=== PATIENT | female | born 1985 | race American Indian/Alaskan Native ===

== ENCOUNTER 2016-10-06 21:20 | Emergency (ER) | payer SELFPAY ==
[2016-10-06 22:58] LABS: Bilirubin,Urine NEG (Negative); Blood,Urine NEG (Negative); Ketones,Urine NEG (Negative); Leukocyte Esterase,Urine NEG (Negative); Mucus,Urine FEW /HPF; Nitrite,Urine NEG (Negative); Protein,Urine <15 mg/dL mg/dL (Negative); Urobilinogen,Urine < 2.0 mg/dL (<2.0)
[2016-10-06] MEDS ORDERED: NACL 0.9% 1000 ML 1,000 ML IV ONE (23:01)
--- NOTE | 2016-10-06 23:01 | Emergency Department Report ---
ED Female HPI - General Chief complaint: Urogenital-Female Stated complaint: BACK PAIN/L SHOULDER PAIN Time Seen by Provider: 10/06/16 22:57 Source: patient Mode of arrival: Ambulatory Limitations: No Limitations - History of Present Illness Initial comments: 31-year-old female past medical history obesity, smoker presents with complaint of several weeks of polyuria and polydipsia. Patient states she feels more thirsty than usual and has been urinating with greater frequency. The triage note is incorrect patient is not having back or left shoulder pain is primarily here for increased urinary frequency and polyuria diphtheria. Patient also states she has noticed some whitish vaginal discharge. Last menstrual period was 09/09/2016. Patient denies chest pain shortness of breath palpitations fever or chills nausea or vomiting. Does not have a history of diabetes but diabetes runs in her family. States she is having some external vaginal irritation. Onset/Timin -: month(s) Location: labia Severity: mild Improves with: none Are you Now?: No Associated Symptoms: denies other symptoms - Related Data Sexually active: No Previous Rx's Medication Instructions Recorded Last Taken Type Clotrimazole [Vsln-Fcancesx-2] 45 gm VG QHS #1 cream.appl 10/07/16 Unknown Rx Allergies Allergy/AdvReac Type Severity Reaction Status Date / Time No Known Allergies Allergy Verified 04/11/13 09:25 ED Review of Systems ROS: Stated complaint: BACK PAIN/L SHOULDER PAIN Other details as noted in HPI Constitutional: denies: chills, fever Eyes: denies: eye pain, eye discharge, vision change ENT: denies: ear pain, throat pain Respiratory: denies: cough, shortness of breath, wheezing Cardiovascular: denies: chest pain, palpitations Endocrine: no symptoms reported, increased thirst Gastrointestinal: denies: abdominal pain, nausea, diarrhea Genitourinary: frequency. denies: urgency, dysuria, discharge Musculoskeletal: denies: back pain, joint swelling, arthralgia Skin: denies: rash, lesions Neurological: denies: headache, weakness, paresthesias Psychiatric: denies: anxiety, depression Hematological/Lymphatic: denies: easy bleeding, easy bruising ED Past Medical Hx - Past Medical History Previous Medical History?: Yes Additional medical history: bronchitis - Surgical History Past Surgical History?: No - Social History Smoking Status: Current Every Day Smoker - Medications Home Medications: Home Medications Medication Instructions Recorded Confirmed Last Taken Type Clotrimazole [Hgiq-Owzduuxo-8] 45 gm VG QHS #1 cream.appl 10/07/16 Unknown Rx ED Physical Exam - General Limitations: No Limitations General appearance: alert, in no apparent distress - Head Head exam: Present: atraumatic, normocephalic - Eye Eye exam: Present: normal appearance, PERRL, EOMI - ENT ENT exam: Present: mucous membranes moist - Neck Neck exam: Present: normal inspection - Respiratory Respiratory exam: Present: normal lung sounds bilaterally. Absent: respiratory distress - Cardiovascular Cardiovascular Exam: Present: regular rate, normal rhythm. Absent: systolic murmur, diastolic murmur, rubs, gallop - GI/Abdominal GI/Abdominal exam: Present: soft, normal bowel sounds - External exam: Present: normal external exam Speculum exam: Present: vaginal discharge (white vaginal discharge consistent with yeast infection) Bi-manual exam: Present: normal bi-manual exam (no cervical motion tenderness no adnexal tenderness) - Extremities Exam Extremities exam: Present: normal inspection - Back Exam Back exam: Present: normal inspection, full ROM - Neurological Exam Neurological exam: Present: alert, oriented X3, CN II-XII intact - Psychiatric Psychiatric exam: Present: normal affect, normal mood - Skin Skin exam: Present: warm, dry, intact, normal color. Absent: rash ED Course Vital Signs 10/06/16 10/07/16 21:27 02:27 Temperature 98.7 F 98.0 F Pulse Rate 87 75 Respiratory 18 18 Rate Blood Pressure 133/88 Blood Pressure 122/87 [Right] O2 Sat by Pulse 97 97 Oximetry ED Medical Decision Making - Lab Data Result diagrams: 10/06/16 23:13 10/06/16 23:13 - Medical Decision Making A/P: Polydipsia, polyuria, hyperglycemia 1-patient has elevated glucose and glucose urea consistent with possible new onset diabetes 2-no significant anion gap on BMP, case discussed with 3-I will treat the patient empirically for possible vaginal candidiasis, patient has otherwise unremarkable pelvic exam 4-I referred patient to primary care and advised her to follow-up as she needs a follow-up for hyperglycemia and primary care treatment plan for possible diabetes Critical care attestation.: If time is entered above; I have spent that time in minutes in the direct care of this critically ill patient, excluding procedure time. ED Disposition Clinical Impression: Hyperglycemia, Glucosuria, Vaginal irritation Disposition: - TO HOME OR SELFCARE Is pt being admited?: No Does the pt Need Aspirin: No Condition: Stable Instructions: Diabetes Mellitus Type 2 in Adults (ED), Hyperglycemia, Non- Diabetic (ED), Diabetic Hyperglycemia (ED) Prescriptions: Clotrimazole [Cisc-Gleayilk-2] 45 gm VG QHS #1 cream.appl Referrals: PRIMARY CARE, [Primary Care Provider] - 3-5 Days MATT FLOWERS MD [Staff Physician] - 3-5 Days [facility] [Provider Group] - 3-5 Days [facility] [Provider Group] - 3-5 Days [facility] [Provider Group] - 3-5 Days Forms: Accompanied Note, Work/School Release Form(ED) Time of Disposition: 02:00
[2016-10-06 23:42] LABS: Basophils % (Auto) 0.9 % (0.0-1.8); Eosinophils % (Auto) 1.9 % (0.0-4.3); Hematocrit 40.6 % (30.3-42.9); Hemoglobin 13.1 gm/dl (10.1-14.3); Mean Corpuscular HGB Conc 32 % (30-34); Mean Corpuscular Hemoglobin 28 pg (28-32); Mean Corpuscular Volume 87 fl (79-97); Platelet Count 218 K/mm3 (140-440); Red Blood Count 4.66 M/mm3 (3.65-5.03); Red Cell Distribution Width 13.3 % (13.2-15.2); White Blood Count 12.6 K/mm3 (4.5-11.0)
[2016-10-07 01:29] LABS: Anion Gap 19 mmol/L; Blood Urea Nitrogen 15 mg/dL (7-17); Calcium 9.3 mg/dL (8.4-10.2); Carbon Dioxide 22 mmol/L (22-30); Glucose 280 mg/dL (65-100); Potassium 3.9 mmol/L (3.6-5.0); Sodium 137 mmol/L (137-145)
[2016-10-07] MEDS ORDERED: NACL 0.9% 1000 ML 1,000 ML IV ONE (01:36)
[2016-10-07 02:28] VITALS: BP 122/87
== END 2016-10-07 02:27 | disposition home or self-care (01) ==
LOC: ED 21:20
DX: R73.9 Hyperglycemia, unspecified (principal); N89.8 Other specified noninflammatory disorders of vagina; R81 Glycosuria; F17.200 Nicotine dependence, unspecified, uncomplicated
CPT/HCPCS: 36415; 80048; 81001; 81025; 82805; 82962; 85025; 87210; 87591; 96360; 96361; 99284; J7030

== ENCOUNTER 2016-11-17 12:21 | Emergency (ER) | payer SELFPAY | END 2016-11-17 14:11 | disposition left against medical advice (07) | LOC: ED 12:21 | DX: R42 Dizziness and giddiness (principal); Z53.21 Procedure and treatment not carried out due to patient leaving prior to being seen by health care provider ==

== ENCOUNTER 2018-10-04 17:56 | Emergency (ER) | payer SELFPAY ==
[2018-10-04 18:05] VITALS: BP 135/91
--- NOTE | 2018-10-04 18:25 | Event Note ---
ED Screening Note Date of service: 10/04/18 Time: 18:22 ED Screening Note: 33 y/o female comes in for chest pain and left eye and face swelling. PMH DM and bronchitis BS 87. LMP 09/29/18 This initial assessment/diagnostic orders/clinical plan/treatment(s) is/are subject to change based on patients health status, clinical progression and re- assessment by fellow clinical providers in the ED. Further treatment and workup at subsequent clinical providers discretion. Patient/guardian urged not to elope from the ED as their condition may be serious if not clinically assessed and managed. Initial orders include:
--- NOTE | 2018-10-04 19:12 | XRay Report ---
CHEST 2 VIEWS INDICATION / CLINICAL INFORMATION: chest tightness. COMPARISON: None available. FINDINGS: SUPPORT DEVICES: None. HEART / MEDIASTINUM: No significant abnormality. LUNGS / PLEURA: No significant pulmonary or pleural abnormality. No pneumothorax. ADDITIONAL FINDINGS: No significant additional findings. IMPRESSION: 1. No acute findings. Signer Name: Rusty Diaz MD Signed: 10/04/2018 7:07 PM Workstation Name: [id number]
[2018-10-04] MEDS ORDERED: TORADOL IM ONE (20:22)
[2018-10-04] MEDS ORDERED: VISTARIL PO ONE (20:22)
[2018-10-04] MEDS ORDERED: SOLU-Medrol IM ONE (20:22)
--- NOTE | 2018-10-04 21:11 | Emergency Department Report ---
ED General Adult HPI - General Chief complaint: Chest Pain Stated complaint: CHEST PAIN/BLURY VISION Time Seen by Provider: 10/04/18 18:22 Source: patient Mode of arrival: Ambulatory Limitations: No Limitations - History of Present Illness Initial comments: Patient is a 33-year-old -[place] female with no past medical history presents today due to complaint of acute onset persistent headache and left facial pain and palsy on the left for the last 12 hours. Patient also complains of diffuse chest tightness. Patient states that she noticed that the left side of her face was deformed whenever she smiled. Patient denies fever, chills, nausea, vomiting, shortness of breath, sore throat, change in mentation, abdominal pain, cough or diarrhea, dizziness, change in vision or eye problems or extremity weakness. MD Complaint: left facial pain and deformity; headache, chest wall tightness -: Sudden, hour(s) (12) Location: face, chest Radiation: non-radiation Severity scale (0 -10): 8 Quality: aching, sharp Consistency: constant Improves with: none Worsens with: none Associated Symptoms: denies other symptoms, chest pain, headaches, loss of appetite, malaise. denies: confusion, cough, diaphoresis, fever/chills, nausea/vomiting, rash, seizure, shortness of breath, syncope, weakness Treatments Prior to Arrival: none - Related Data Previous Rx's Medication Instructions Recorded Last Taken Type Sulfamethoxazole/Trimethoprim 1 each PO BID #10 tablet 01/02/17 Unknown Rx [Bactrim DS TAB] Acyclovir [Zovirax Tab] 400 mg PO Q8H #30 tab 10/04/18 Unknown Rx Butalb/Acetamin/Caff 50-325-40 1 tab PO Q6HR PRN #15 tab 10/04/18 Unknown Rx [Fioricet 50-325-40] Ketorolac [Toradol] 10 mg PO Q8H PRN #20 tablet 10/04/18 Unknown Rx Prednisone [predniSONE 10 mg 10 mg PO .TAPER #21 tab.ds.pk 10/04/18 Unknown Rx (6-Day Pack, 21 Tabs)] Allergies Allergy/AdvReac Type Severity Reaction Status Date / Time No Known Allergies Allergy Verified 01/02/17 11:12 ED Review of Systems ROS: Stated complaint: CHEST PAIN/BLURY VISION Other details as noted in HPI Comment: All other systems reviewed and negative Constitutional: denies: chills, fever Eyes: denies: eye pain, eye discharge, vision change ENT: other (left facial palsy with mild deformity and pain). denies: ear pain, throat pain Respiratory: no symptoms reported. denies: cough, shortness of breath, SOB with exertion, SOB at rest, wheezing Cardiovascular: chest pain (tightness). denies: palpitations, dyspnea on exertion, edema, syncope, paroxysmal nocturnal dyspnea Endocrine: no symptoms reported. denies: excessive sweating, flushing, intolerance to heat, increased hunger, increased thirst, increased urine Gastrointestinal: denies: abdominal pain, nausea, vomiting, diarrhea Genitourinary: denies: urgency, dysuria, discharge Musculoskeletal: denies: back pain, joint swelling, arthralgia Skin: denies: rash, lesions Neurological: headache. denies: weakness, paresthesias Psychiatric: anxiety. denies: depression Hematological/Lymphatic: denies: easy bleeding, easy bruising ED Past Medical Hx - Past Medical History Previous Medical History?: Yes Hx Diabetes: Yes Additional medical history: bronchitis - Surgical History Past Surgical History?: No - Social History Smoking Status: Never Smoker Substance Use Type: None - Medications Home Medications: Home Medications Medication Instructions Recorded Confirmed Last Taken Type Sulfamethoxazole/Trimethoprim 1 each PO BID #10 tablet 01/02/17 Unknown Rx [Bactrim DS TAB] Acyclovir [Zovirax Tab] 400 mg PO Q8H #30 tab 10/04/18 Unknown Rx Butalb/Acetamin/Caff 50-325-40 1 tab PO Q6HR PRN #15 tab 10/04/18 Unknown Rx [Fioricet 50-325-40] Ketorolac [Toradol] 10 mg PO Q8H PRN #20 tablet 10/04/18 Unknown Rx Prednisone [predniSONE 10 mg 10 mg PO .TAPER #21 tab.ds.pk 10/04/18 Unknown Rx (6-Day Pack, 21 Tabs)] ED Physical Exam - General Limitations: No Limitations General appearance: alert, in no apparent distress - Head Head exam: Present: atraumatic, normocephalic, normal inspection - Eye Eye exam: Present: normal appearance, PERRL, EOMI. Absent: scleral icterus, conjunctival injection, nystagmus, periorbital swelling, periorbital tenderness Pupils: Present: normal accommodation - ENT ENT exam: Present: normal exam, normal orophraynx, mucous membranes moist, TM's normal bilaterally, normal external ear exam, other (gross left facial droop and palsy) - Neck Neck exam: Present: normal inspection, full ROM. Absent: tenderness - Respiratory Respiratory exam: Present: normal lung sounds bilaterally. Absent: respiratory distress, wheezes, rales, rhonchi, chest wall tenderness, accessory muscle use, decreased breath sounds - Cardiovascular Cardiovascular Exam: Present: regular rate, normal rhythm, normal heart sounds. Absent: systolic murmur, diastolic murmur, rubs, gallop - GI/Abdominal GI/Abdominal exam: Present: soft, normal bowel sounds. Absent: tenderness, guarding, hyperactive bowel sounds, hypoactive bowel sounds - Rectal Rectal exam: Present: deferred - Extremities Exam Extremities exam: Present: normal inspection, full ROM, normal capillary refill - Back Exam Back exam: Present: normal inspection, full ROM. Absent: CVA tenderness (L), muscle spasm, paraspinal tenderness - Neurological Exam Neurological exam: Present: alert, oriented X3, CN II-XII intact, normal gait, reflexes normal, other (gross left facial droop with palsy) - Psychiatric Psychiatric exam: Present: normal affect, normal mood, anxious - Skin Skin exam: Present: warm, dry, intact, normal color. Absent: rash ED Course Vital Signs 10/04/18 10/04/18 18:02 18:19 Temperature 98.3 F 98.3 F Pulse Rate 73 73 Respiratory 18 18 Rate Blood Pressure 135/91 Blood Pressure 135/91 [Right] O2 Sat by Pulse 99 99 Oximetry - Reevaluation(s) Reevaluation #1: 10/04/18 21:17 This is a 33-year-old female who presented to the ED with left facial pain with pleurisy, headache and chest tightness. In the ED, patient is alert and oriented 3 and is not in distress with normal vital signs. Patient was treated in the ED with pain medication and also given steroid injection. Chest x-ray shows no acute cardiopulmonary abnormalities. Patient was discharged home on medications and advised to follow up with her primary care physician in 5-7 days for reevaluation or return to the ED immediately if symptoms get worse. 10/04/18 21:22 ED Medical Decision Making - Radiology Data Radiology results: report reviewed, image reviewed Chest x-ray shows no acute cardiopulmonary abnormalities - Medical Decision Making This is a 33-year-old female who presented to the ED with left facial pain with pleurisy, headache and chest tightness. In the ED, patient is alert and oriented 3 and is not in distress with normal vital signs. Patient was treated in the ED with pain medication and also given steroid injection. Patient was discharged home on medications and advised to follow up with her primary care physician in 5-7 days for reevaluation or return to the ED immediately if symptoms get worse. - Differential Diagnosis Guy's palsy, cluster headache, anxiety Critical care attestation.: If time is entered above; I have spent that time in minutes in the direct care of this critically ill patient, excluding procedure time. ED Disposition Clinical Impression: Guy's palsy, Anxiety as acute reaction to gross stress Cluster headache Qualifiers: Headache chronicity pattern: episodic headache Intractability: not intractable Qualified Code(s): G44.019 - Episodic cluster headache, not intractable Disposition: DC-01 TO HOME OR SELFCARE Is pt being admited?: No Does the pt Need Aspirin: No Condition: Stable Instructions: Guy Palsy (ED), Acute Headache (ED) Additional Instructions: Take medications with food, drink plenty of fluids and follow-up with your Primary Care Physician in 5-7 days for reevaluation. Return to the ED immediately if symptoms get worse. Prescriptions: Butalb/Acetamin/Caff 50-325-40 [Fioricet 50-325-40] 1 tab PO Q6HR PRN #15 tab PRN Reason: Headache Prednisone [predniSONE 10 mg (6-Day Pack, 21 Tabs)] 10 mg PO .TAPER #21 tab.ds.pk Ketorolac [Toradol] 10 mg PO Q8H PRN #20 tablet PRN Reason: Pain Acyclovir [Zovirax Tab] 400 mg PO Q8H #30 tab Referrals: [facility] [Outside] - 3-5 Days Time of Disposition: 21:09 Print Language: LUXEMBOURGER
== END 2018-10-04 21:24 | disposition home or self-care (01) ==
LOC: ED 17:56
DX: G51.0 Bell's palsy (principal); F41.9 Anxiety disorder, unspecified; G44.009 Cluster headache syndrome, unspecified, not intractable; E11.9 Type 2 diabetes mellitus without complications; Z79.899 Other long term (current) drug therapy
CPT/HCPCS: 71046; 82962; 93005; 93010; 96372; 99283; J1885; J2930; Q0177

== ENCOUNTER 2019-10-17 16:19 | Emergency (ER) | payer MEDICAID ==
[2019-10-17 16:39] VITALS: BP 137/87
[2019-10-17] MEDS ORDERED: dexAMETHasone 20 MG/5 ML VIAL ONE (18:00)
[2019-10-17] MEDS ORDERED: dexAMETHasone 20 MG/5 ML VIAL IM ONE (18:23)
--- NOTE | 2019-10-17 18:27 | Event Note ---
ED Screening Note Date of service: 10/17/19 Time: 18:25 ED Screening Note: Patient complains of sore throat and difficulty swallowing x1 week Worsening and states she can only swallow her saliva History of diabetes Muffled voice on exam with trismus noted; significant erythema noted in the post erior pharynx This initial assessment/diagnostic orders/clinical plan/treatment(s) is/are subject to change based on patients health status, clinical progression and re- assessment by fellow clinical providers in the ED. Further treatment and workup at subsequent clinical providers discretion. Patient/guardian urged not to elope from the ED as their condition may be serious if not clinically assessed and managed. Initial orders include: Labs CT neck soft tissue Decadron IM given for pain and swelling
[2019-10-17 19:32] LABS: Basophils # (Auto) 0.1 K/mm3 (0.0-0.1); Basophils % (Auto) 0.5 % (0.0-1.8); Eosinophils # (Auto) 0.1 K/mm3 (0.0-0.4); Eosinophils % (Auto) 0.8 % (0.0-4.3); Hemoglobin 12.2 gm/dl (10.1-14.3); Lymphocytes % (Auto) 17.1 % (13.4-35.0); Mean Corpuscular HGB Conc 32 % (30-34); Mean Corpuscular Volume 86 fl (79-97); Monocytes % (Auto) 5.7 % (0.0-7.3); Platelet Count 278 K/mm3 (140-440); Red Blood Count 4.43 M/mm3 (3.65-5.03)
[2019-10-17 19:49] LABS: Alanine Aminotransferase 16 units/L (7-56); Albumin 3.9 g/dL (3.9-5); Blood Urea Nitrogen 14 mg/dL (7-17); Calcium 9.6 mg/dL (8.4-10.2); Hemolysis Index 1
[2019-10-17] MEDS ORDERED: SODIUM CHLORIDE 0.9% 1000 ML 1,000 ML IV ONE (19:55)
[2019-10-17] MEDS ORDERED: MORPHINE 2 MG/1 ML INJ IV ONE (19:55)
[2019-10-17] MEDS ORDERED: CLINDAMYCIN 600 MG/50 mL 600 MG/50 ML BAG IV ONE (19:55)
[2019-10-17 19:56] LABS: BUN/Creatinine Ratio 20
--- NOTE | 2019-10-17 20:33 | Emergency Department Report ---
ED ENT HPI - General Chief complaint: Sore Throat Stated complaint: SORE THROAT/SOB Time Seen by Provider: 10/17/19 18:20 Source: patient Mode of arrival: Ambulatory Limitations: No Limitations - History of Present Illness Initial comments: This is a 34-year-old female nontoxic, well nourished in appearance, no acute signs of distress presents to the ED with c/o of sore throat x several days. Patient describes sore throat as swallowing razer blades. Patient denies any fever, chills, headache, stiff neck, nausea, vomiting, chest pain, shortness of breath, numbness or tingling. Patient denies any drooling but has some muffled voice. Patient is able to tolerate saliva. Patient denies any allergies or significant past medical history. MD complaint: sore throat -: days(s) Location: throat Severity: mild Severity scale (0 -10): 8 Quality: aching Consistency: constant Improves with: none Worsens with: swallowing Associated Symptoms: pain with swallowing, sore throat. denies: fever, cough, gum swelling, toothache, tinnitus, hearing loss, discharge from ear, rhinorrhea - Related Data Previous Rx's Medication Instructions Recorded Last Taken Type Sulfamethoxazole/Trimethoprim 1 each PO BID #10 tablet 01/02/17 Unknown Rx [Bactrim DS TAB] Acyclovir [Zovirax Tab] 400 mg PO Q8H #30 tab 10/04/18 Unknown Rx Butalb/Acetamin/Caff 50-325-40 1 tab PO Q6HR PRN #15 tab 10/04/18 Unknown Rx [Fioricet 50-325-40] Ketorolac [Toradol] 10 mg PO Q8H PRN #20 tablet 10/04/18 Unknown Rx Prednisone [predniSONE 10 mg 10 mg PO .TAPER #21 tab.ds.pk 10/04/18 Unknown Rx (6-Day Pack, 21 Tabs)] Acetaminophen/Codeine [Tylenol 1 tab PO Q6H PRN #12 tab 10/17/19 Unknown Rx /Codeine # 3 tab] Clindamycin [Clindamycin CAP] 300 mg PO Q6H #28 capsule 10/17/19 Unknown Rx Nystas/Diphen/Xyl Visc/Mylanta 15 ml MM Q4H PRN 5 Days ml 08/18/20 Unknown Rx [Magic Mouthwash] Allergies Allergy/AdvReac Type Severity Reaction Status Date / Time No Known Allergies Allergy Verified 01/02/17 11:12 ED Dental HPI - General Chief complaint: Sore Throat Stated complaint: SORE THROAT/SOB Time Seen by Provider: 10/17/19 18:20 Source: patient Mode of arrival: Ambulatory Limitations: No Limitations - Related Data Previous Rx's Medication Instructions Recorded Last Taken Type Sulfamethoxazole/Trimethoprim 1 each PO BID #10 tablet 01/02/17 Unknown Rx [Bactrim DS TAB] Acyclovir [Zovirax Tab] 400 mg PO Q8H #30 tab 10/04/18 Unknown Rx Butalb/Acetamin/Caff 50-325-40 1 tab PO Q6HR PRN #15 tab 10/04/18 Unknown Rx [Fioricet 50-325-40] Ketorolac [Toradol] 10 mg PO Q8H PRN #20 tablet 10/04/18 Unknown Rx Prednisone [predniSONE 10 mg 10 mg PO .TAPER #21 tab.ds.pk 10/04/18 Unknown Rx (6-Day Pack, 21 Tabs)] Acetaminophen/Codeine [Tylenol 1 tab PO Q6H PRN #12 tab 10/17/19 Unknown Rx /Codeine # 3 tab] Clindamycin [Clindamycin CAP] 300 mg PO Q6H #28 capsule 10/17/19 Unknown Rx Nystas/Diphen/Xyl Visc/Mylanta 15 ml MM Q4H PRN 5 Days ml 10/17/19 Unknown Rx [Magic Mouthwash] Allergies Allergy/AdvReac Type Severity Reaction Status Date / Time No Known Allergies Allergy Verified 01/02/17 11:12 ED Review of Systems ROS: Stated complaint: SORE THROAT/SOB Other details as noted in HPI Constitutional: denies: chills, fever Eyes: denies: eye pain, eye discharge, vision change ENT: throat pain. denies: ear pain Respiratory: denies: cough, shortness of breath, wheezing Cardiovascular: denies: chest pain, palpitations Endocrine: no symptoms reported Gastrointestinal: denies: abdominal pain, nausea, diarrhea Genitourinary: denies: urgency, dysuria, discharge Musculoskeletal: denies: back pain, joint swelling, arthralgia Skin: denies: rash, lesions Neurological: denies: headache, weakness, paresthesias Psychiatric: denies: anxiety, depression Hematological/Lymphatic: denies: easy bleeding, easy bruising ED Past Medical Hx - Past Medical History Hx Diabetes: Yes Additional medical history: bronchitis - Surgical History Past Surgical History?: No - Social History Smoking Status: Never Smoker Substance Use Type: None - Medications Home Medications: Home Medications Medication Instructions Recorded Confirmed Last Taken Type Sulfamethoxazole/Trimethoprim 1 each PO BID #10 tablet 01/02/17 Unknown Rx [Bactrim DS TAB] Acyclovir [Zovirax Tab] 400 mg PO Q8H #30 tab 10/04/18 Unknown Rx Butalb/Acetamin/Caff 50-325-40 1 tab PO Q6HR PRN #15 tab 10/04/18 Unknown Rx [Fioricet 50-325-40] Ketorolac [Toradol] 10 mg PO Q8H PRN #20 tablet 10/04/18 Unknown Rx Prednisone [predniSONE 10 mg 10 mg PO .TAPER #21 tab.ds.pk 10/04/18 Unknown Rx (6-Day Pack, 21 Tabs)] Acetaminophen/Codeine [Tylenol 1 tab PO Q6H PRN #12 tab 10/17/19 Unknown Rx /Codeine # 3 tab] Clindamycin [Clindamycin CAP] 300 mg PO Q6H #28 capsule 10/17/19 Unknown Rx Nystas/Diphen/Xyl Visc/Mylanta 15 ml MM Q4H PRN 5 Days ml 10/17/19 Unknown Rx [Magic Mouthwash] ED Physical Exam - General Limitations: No Limitations General appearance: alert, in no apparent distress - Head Head exam: Present: atraumatic, normocephalic - Eye Eye exam: Present: normal appearance - Expanded ENT Exam Expanded Ear exam: Present: normal external inspection Mouth exam: Present: normal external inspection, muffled voice. Absent: rocio oling, trismus Teeth exam: Present: normal inspection Throat exam: Positive: tonsillar erythema, tonsillomegaly (3+ bilateral), other (Uvula midline). Negative: tonsillar exudate, R peritonsillar mass, L peritonsillar mass - Neck Neck exam: Present: normal inspection, full ROM, lymphadenopathy (Tonsillar). A bsent: tenderness, meningismus - Respiratory Respiratory exam: Present: normal lung sounds bilaterally. Absent: respiratory distress, wheezes, rales, rhonchi, stridor, chest wall tenderness, accessory muscle use, decreased breath sounds, prolonged expiratory - Cardiovascular Cardiovascular Exam: Present: regular rate, normal rhythm, normal heart sounds. Absent: bradycardia, tachycardia, irregular rhythm, systolic murmur, diastolic murmur, rubs, gallop - Extremities Exam Extremities exam: Present: normal inspection, full ROM - Back Exam Back exam: Present: normal inspection, full ROM - Neurological Exam Neurological exam: Present: alert, oriented X3, normal gait - Psychiatric Psychiatric exam: Present: normal affect, normal mood - Skin Skin exam: Present: warm, dry, intact, normal color. Absent: rash ED Course Vital Signs 10/17/19 16:36 Temperature 98.9 F Pulse Rate 85 Respiratory 18 Rate Blood Pressure 137/87 O2 Sat by Pulse 100 Oximetry - Reevaluation(s) Reevaluation #1: 10/17/19 20:33 Patient is speaking in full sentences with no signs of distress noted. ED Medical Decision Making - Lab Data Result diagrams: 10/17/19 18:52 10/17/19 18:52 Lab Results 10/17/19 10/17/19 10/17/19 Range/Units 18:52 18:52 18:52 WBC 17.6 H (4.5-11.0) K/mm3 RBC 4.43 (3.65-5.03) M/mm3 Hgb 12.2 (10.1-14.3) gm/dl Hct 38.0 (30.3-42.9) % MCV 86 (79-97) fl MCH 28 (28-32) pg MCHC 32 (30-34) % RDW 16.0 H (13.2-15.2) % Plt Count 278 (140-440) K/mm3 Lymph % (Auto) 17.1 (13.4-35.0) % [place] % (Auto) 5.7 (0.0-7.3) % Eos % (Auto) 0.8 (0.0-4.3) % Baso % (Auto) 0.5 (0.0-1.8) % Lymph # 3.0 (1.2-5.4) K/mm3 [place] # 1.0 H (0.0-0.8) K/mm3 Eos # 0.1 (0.0-0.4) K/mm3 Baso # 0.1 (0.0-0.1) K/mm3 Seg Neutrophils % 75.9 H (40.0-70.0) % Seg Neutrophils # 13.4 H (1.8-7.7) K/mm3 Sodium 137 (137-145) mmol/L Potassium 3.9 (3.6-5.0) mmol/L Chloride 99.5 (98-107) mmol/L Carbon Dioxide 24 (22-30) mmol/L Anion Gap 17 mmol/L BUN 14 (7-17) mg/dL Creatinine 0.7 (0.6-1.2) mg/dL Estimated GFR > 60 ml/min BUN/Creatinine Ratio 20 % Glucose 105 H (65-100) mg/dL Calcium 9.6 (8.4-10.2) mg/dL Total Bilirubin 0.30 (0.1-1.2) mg/dL AST 18 (5-40) units/L ALT 16 (7-56) units/L Alkaline Phosphatase 78 (35-129) units/L Total Protein 7.7 (6.3-8.2) g/dL Albumin 3.9 (3.9-5) g/dL Albumin/Globulin Ratio 1.0 % HCG, Qual Negative (Negative) - Radiology Data Referring Physician: ABI HERNANDEZ Patient Name: DARCIE LEBLANC Date of : 1985 Sex: Female Report Date: 2019-10-17 Report Status: [place] [address] Cat Scan Report Signed Patient: DARCIE LEBLANC R#: [id number] : 1985 Acct:[id number] Age/Sex: 34 / F ADM Date: 10/17/19 Loc: ED Attending Dr: Ordering Physician: ABI HERNANDEZ Date of Service: 10/17/19 Procedure(s): CT neck w con Accession Number(s): [id number] cc: ABI HERNANDEZ CT NECK WITH CONTRAST HISTORY: Throat pain; trismus COMPARISON: None. TECHNIQUE: Routine CT of the neck is performed following intravenous contrast. All CT scans at this location are performed using CT dose reduction for ALARA by means of automated exposure control CONTRAST: 100 mL Omnipaque 300 FINDINGS: Left faucial tonsil is swollen. No CT findings to suggest tonsillar/peritonsillar abscess. Mild mass effect over the airway and left parapharyngeal space. Skull Base: No significant abnormality. Parotid, Carotid, Retropharyngeal, Prevertebral and Tile Molder Spaces: No abnormal mass, enhancing lesion or other significant abnormality. Airway: Patent Lymphatics: Reactive lymph nodes at level 2 and 3 more on the left side in the left supraclavicular region Vasculature: No significant abnormality. Osseous Structures: No significant abnormality Additional findings: None. IMPRESSION: Enlarged left faucial tonsil; no tonsillar/peritonsillar abscess Mild mass effect over the airway is not compromised Signer Name: Lenin Alejandro MD Signed: 10/17/2019 9:15 PM Workstation Name: [id number] Transcribed By: BS Dictated By: Lenin Cerda MD Electronically Authenticated By: Lenin Cerda MD Signed Date/Time: 10/17/192114 DD/ 10 TD/TT: - Medical Decision Making This is a 34-year-old female that presents with pharyngitis. Patient is stable was examined by me. Patient is notified of the CT results with no questions noted by the patient. No tonsillar abscess noted. Uvula is midline. Patient received Clinda and [place] in the ED. Vital signs are stable. Patient is not febrile and normal heart rate. Patient was instructed to Follow-up with a primary care doctor in 3-5 days or if symptoms worsen and continue return to emergency room as soon as possible. At time of discharge, the patient does not seem toxic or ill in appearance. No acute signs of distress noted. Patient agrees to discharge treatment plan of care. No further questions noted by the patient. - Differential Diagnosis Tonsillar abscess, pharyngitis, strep throat Critical care attestation.: If time is entered above; I have spent that time in minutes in the direct care of this critically ill patient, excluding procedure time. ED Disposition Clinical Impression: Tonsillitis Pharyngitis Qualifiers: Pharyngitis/tonsillitis etiology: unspecified etiology Qualified Code(s): J02.9 - Acute pharyngitis, unspecified Disposition: DC-01 TO HOME OR SELFCARE Is pt being admited?: No Does the pt Need Aspirin: No Condition: Stable Instructions: Pharyngitis (ED) Additional Instructions: Follow-up with a primary care doctor in 3-5 days or if symptoms worsen and continue return to emergency room as soon as possible. Prescriptions: Clindamycin [Clindamycin CAP] 300 mg PO Q6H #28 capsule Nystas/Diphen/Xyl Visc/Mylanta [Magic Mouthwash] 15 ml MM Q4H PRN 5 Days ml PRN Reason: Sore Throat Acetaminophen/Codeine [Tylenol /Codeine # 3 tab] 1 tab PO Q6H PRN #12 tab PRN Reason: Pain , Severe (7-10) Referrals: PRIMARY CAREMD [Primary Care Provider] - 3-5 Days FRANNIE ALEXANDER MD [Staff Physician] - 3-5 Days Forms: Work/School Release Form(ED) Time of Disposition: 21:28
--- NOTE | 2019-10-17 21:20 | Cat Scan Report ---
CT NECK WITH CONTRAST HISTORY: Throat pain; trismus COMPARISON: None. TECHNIQUE: Routine CT of the neck is performed following intravenous contrast. All CT scans at this [facility] [place] are performed using CT dose reduction for ALARA by means of automated exposure control CONTRAST: 100 mL Omnipaque 300 FINDINGS: Left faucial tonsil is swollen. No CT findings to suggest tonsillar/peritonsillar abscess. Mild mass effect over the airway and left parapharyngeal space. Skull Base: No significant abnormality. Parotid, Carotid, Retropharyngeal, Prevertebral and Certified Ophthalmic Technician Spaces: No abnormal mass, enhancing le jaja or other significant abnormality. Airway: Patent Lymphatics: Reactive lymph nodes at level 2 and 3 more on the left side in the left supraclavicular r egion Vasculature: No significant abnormality. Osseous Structures: No significant abnormality Additional findings: None. IMPRESSION: Enlarged left faucial tonsil; no tonsillar/peritonsillar abscess Mild mass effect over the airway is not compromised Signer Name: Lenin Alejandro MD Signed: 10/17/2019 9:15 PM Workstation Name: [id number]
== END 2019-10-17 22:00 | disposition home or self-care (01) ==
LOC: ED 16:19
DX: J02.9 Acute pharyngitis, unspecified (principal); J03.90 Acute tonsillitis, unspecified; E11.9 Type 2 diabetes mellitus without complications; Z79.2 Long term (current) use of antibiotics; Z79.899 Other long term (current) drug therapy
CPT/HCPCS: 36415; 70491; 80053; 84703; 85025; 96365; 96372; 96375; 99284; J1100; J2270; J7030; Q9967

== ENCOUNTER 2020-01-27 08:29 | Emergency (ER) | payer MEDICAID ==
[2020-01-27 08:45] VITALS: BP 160/113
[2020-01-27] MEDS ORDERED: dexAMETHasone 4 MG/ML VIAL IV ONE (10:07)
[2020-01-27] MEDS ORDERED: SODIUM CHLORIDE 0.9% 1000 ML 1,000 ML IV ONE (10:09)
[2020-01-27] MEDS ORDERED: MORPHINE 2 MG/1 ML INJ IV ONE (10:32)
--- NOTE | 2020-01-27 10:32 | Emergency Department Report ---
ED ENT HPI - General Chief complaint: Sore Throat Stated complaint: THROAT PAINS Time Seen by Provider: 01/27/20 10:07 Source: patient Mode of arrival: Ambulatory Limitations: No Limitations - History of Present Illness Initial comments: 35-year-old female she is complaining of sore throat x8 days she was seen at [facility] last night had a negative rapid strep test and she was sent home. She is complaining of worsening pain in her throat inability to swallow. She is a non-smoker denies any past medical history MD complaint: sore throat -: week(s) (1) Severity: moderate Quality: aching Consistency: constant Associated Symptoms: pain with swallowing, sore throat - Related Data Previous Rx's Medication Instructions Recorded Last Taken Type Sulfamethoxazole/Trimethoprim 1 each PO BID #10 tablet 01/02/17 Unknown Rx [Bactrim DS TAB] Acyclovir [Zovirax Tab] 400 mg PO Q8H #30 tab 10/04/18 Unknown Rx Butalb/Acetamin/Caff 50-325-40 1 tab PO Q6HR PRN #15 tab 10/04/18 Unknown Rx [Fioricet 50-325-40] Ketorolac [Toradol] 10 mg PO Q8H PRN #20 tablet 10/04/18 Unknown Rx Prednisone [predniSONE 10 mg 10 mg PO .TAPER #21 tab.ds.pk 10/04/18 Unknown Rx (6-Day Pack, 21 Tabs)] Acetaminophen/Codeine [Tylenol 1 tab PO Q6H PRN #12 tab 10/17/19 Unknown Rx /Codeine # 3 tab] Clindamycin [Clindamycin CAP] 300 mg PO Q6H #28 capsule 10/17/19 Unknown Rx Nystas/Diphen/Xyl Visc/Mylanta 15 ml MM Q4H PRN 5 Days ml 10/17/19 Unknown Rx [Magic Mouthwash] Amoxicillin [Amoxicillin TAB] 875 mg PO BID 10 Days #20 tablet 01/27/20 Unknown Rx methylPREDNISolone [Medrol 4MG 4 mg PO DAILY #1 pkg 01/27/20 Unknown Rx DOSEPAK (21 tabs)] Allergies Allergy/AdvReac Type Severity Reaction Status Date / Time No Known Allergies Allergy Verified 01/02/17 11:12 ED Dental HPI - General Chief complaint: Sore Throat Stated complaint: THROAT PAINS Time Seen by Provider: 01/27/20 10:07 Source: patient Mode of arrival: Ambulatory Limitations: No Limitations - Related Data Previous Rx's Medication Instructions Recorded Last Taken Type Sulfamethoxazole/Trimethoprim 1 each PO BID #10 tablet 01/02/17 Unknown Rx [Bactrim DS TAB] Acyclovir [Zovirax Tab] 400 mg PO Q8H #30 tab 10/04/18 Unknown Rx Butalb/Acetamin/Caff 50-325-40 1 tab PO Q6HR PRN #15 tab 10/04/18 Unknown Rx [Fioricet 50-325-40] Ketorolac [Toradol] 10 mg PO Q8H PRN #20 tablet 10/04/18 Unknown Rx Prednisone [predniSONE 10 mg 10 mg PO .TAPER #21 tab.ds.pk 10/04/18 Unknown Rx (6-Day Pack, 21 Tabs)] Acetaminophen/Codeine [Tylenol 1 tab PO Q6H PRN #12 tab 10/17/19 Unknown Rx /Codeine # 3 tab] Clindamycin [Clindamycin CAP] 300 mg PO Q6H #28 capsule 10/17/19 Unknown Rx Nystas/Diphen/Xyl Visc/Mylanta 15 ml MM Q4H PRN 5 Days ml 10/17/19 Unknown Rx [Magic Mouthwash] Amoxicillin [Amoxicillin TAB] 875 mg PO BID 10 Days #20 tablet 01/27/20 Unknown Rx methylPREDNISolone [Medrol 4MG 4 mg PO DAILY #1 pkg 01/27/20 Unknown Rx DOSEPAK (21 tabs)] Allergies Allergy/AdvReac Type Severity Reaction Status Date / Time No Known Allergies Allergy Verified 01/02/17 11:12 ED Review of Systems ROS: Stated complaint: THROAT PAINS Other details as noted in HPI Comment: All other systems reviewed and negative Constitutional: no symptoms reported Eyes: denies: eye pain, vision change ENT: throat pain, other (Painful swallowing). denies: ear pain Cardiovascular: denies: chest pain, palpitations, dyspnea on exertion, orthopnea Endocrine: denies: intolerance to cold Gastrointestinal: denies: abdominal pain, diarrhea, constipation Musculoskeletal: denies: back pain Neurological: denies: headache, weakness, numbness, paresthesias ED Past Medical Hx - Past Medical History Hx Diabetes: Yes Additional medical history: bronchitis - Surgical History Past Surgical History?: No - Social History Smoking Status: Never Smoker Substance Use Type: Alcohol - Medications Home Medications: Home Medications Medication Instructions Recorded Confirmed Last Taken Type Sulfamethoxazole/Trimethoprim 1 each PO BID #10 tablet 01/02/17 Unknown Rx [Bactrim DS TAB] Acyclovir [Zovirax Tab] 400 mg PO Q8H #30 tab 10/04/18 Unknown Rx Butalb/Acetamin/Caff 50-325-40 1 tab PO Q6HR PRN #15 tab 10/04/18 Unknown Rx [Fioricet 50-325-40] Ketorolac [Toradol] 10 mg PO Q8H PRN #20 tablet 10/04/18 Unknown Rx Prednisone [predniSONE 10 mg 10 mg PO .TAPER #21 tab.ds.pk 10/04/18 Unknown Rx (6-Day Pack, 21 Tabs)] Acetaminophen/Codeine [Tylenol 1 tab PO Q6H PRN #12 tab 10/17/19 Unknown Rx /Codeine # 3 tab] Clindamycin [Clindamycin CAP] 300 mg PO Q6H #28 capsule 10/17/19 Unknown Rx Nystas/Diphen/Xyl Visc/Mylanta 15 ml MM Q4H PRN 5 Days ml 10/17/19 Unknown Rx [Magic Mouthwash] Amoxicillin [Amoxicillin TAB] 875 mg PO BID 10 Days #20 tablet 01/27/20 Unknown Rx methylPREDNISolone [Medrol 4MG 4 mg PO DAILY #1 pkg 01/27/20 Unknown Rx DOSEPAK (21 tabs)] ED Physical Exam - General Limitations: No Limitations General appearance: alert, in no apparent distress - Head Head exam: Present: atraumatic - Eye Eye exam: Present: normal appearance - ENT ENT exam: Present: normal orophraynx (Tonsillar swelling more prominent on the left), TM's normal bilaterally - Neck Neck exam: Present: lymphadenopathy - Respiratory Respiratory exam: Present: normal lung sounds bilaterally. Absent: respiratory distress - Cardiovascular Cardiovascular Exam: Present: regular rate, normal rhythm, normal heart sounds - GI/Abdominal GI/Abdominal exam: Present: soft. Absent: distended, tenderness, guarding - Extremities Exam Extremities exam: Present: normal inspection - Back Exam Back exam: Present: normal inspection - Neurological Exam Neurological exam: Present: alert, oriented X3 - Psychiatric Psychiatric exam: Present: normal affect - Skin Skin exam: Present: warm, dry, intact ED Course Vital Signs 01/27/20 01/27/20 08:42 15:01 Temperature 98.2 F Pulse Rate 81 75 Respiratory 19 18 Rate Blood Pressure 160/113 O2 Sat by Pulse 96 99 Oximetry - Reevaluation(s) Reevaluation #1: 01/27/20 14:56 Patient in no distress findings of CAT scan and lab work given to patient she agrees with the plan of outpatient care oral antibiotics and follow-up ED Medical Decision Making - Lab Data Result diagrams: 01/27/20 10:32 01/27/20 11:09 - Radiology Data Radiology results: report reviewed FINDINGS: Oropharynx: Left faucial tonsil is enlarged; lower attenuation in the contrast enhanced series: No enhancing ring surrounding the lower attenuation; tonsillitis has not yet matured into tonsillar/peritonsillar abscess on the left side; airway is narrowed Enlarged tonsil was seen in September 2019 Reactive lymph nodes at level 2 bilaterally Skull Base: No significant abnormality. Parotid, Carotid, Retropharyngeal, Prevertebral, Pharyngeal Mucosal, and Branch Manager Trainee Spaces: No abnormal mass, enhancing lesion or other significant abnormality. Airway: Narrowed at oropharynx. Lymphatics: No lymphadenopathy. Vasculature: No significant abnormality. Osseous Structures: No significant abnormality Additional findings: None. IMPRESSION: Enlarged left faucial tonsil; lower attenuation area within the colon no enhancing rim; findings consistent with tonsillar inflammation but not matured into abscess - Medical Decision Making 35-year-old female with 8 days of sore throat seen at [facility] last night had a negative negative rapid strep but just persistent pain and CT soft tissue of the neck was done to rule out peritonsillar abscess . Patient has acute tonsillitis with no definitive abscess. Plan is to discharge her home with antibiotics and steroids patient is taking small sips of liquid in the emergency room and is well-appearing Critical care attestation.: If time is entered above; I have spent that time in minutes in the direct care of this critically ill patient, excluding procedure time. ED Disposition Clinical Impression: Acute tonsillitis Qualifiers: Pharyngitis/tonsillitis etiology: unspecified etiology Qualified Code(s): J03.90 - Acute tonsillitis, unspecified Disposition: TO HOME OR SELFCARE Is pt being admited?: No Does the pt Need Aspirin: No Condition: Stable Instructions: Tonsillitis, [id number] Additional Instructions: Warm salt water gargles at least 3 times per day take all medication as prescribed return to the emergency room if you have not any difficulty swallowing worsening symptoms, if fever persists after 3 days of taking your antibiotic or any shortness of breath or difficulty breathing Prescriptions: Amoxicillin [Amoxicillin TAB] 875 mg PO BID 10 Days #20 tablet methylPREDNISolone [Medrol 4MG DOSEPAK (21 tabs)] 4 mg PO DAILY #1 pkg Referrals: PRIMARY CAREMD [Primary Care Provider] - 3-5 Days FRANNIE ALEXANDER MD [Staff Physician] - 3-5 Days Forms: AMA Form Time of Disposition: 14:45
[2020-01-27 10:35] LABS: Hematocrit 34.6 % (30.3-42.9); Hemoglobin 11.2 gm/dl (10.1-14.3); Mean Corpuscular HGB Conc 32 % (30-34); Mean Corpuscular Volume 83 fl (79-97); Platelet Count 242 K/mm3 (140-440); Red Blood Count 4.17 M/mm3 (3.65-5.03)
[2020-01-27 11:37] LABS: BUN/Creatinine Ratio 16; Blood Urea Nitrogen 11 mg/dL (7-17); Calcium 8.9 mg/dL (8.4-10.2); Hemolysis Index 1
--- NOTE | 2020-01-27 14:03 | Cat Scan Report ---
CT NECK WITH CONTRAST HISTORY: Difficulty swallowing; peritonsillar abscess COMPARISON: CT scan of the neck from 10/17/2019 TECHNIQUE: Routine CT of the neck is performed following intravenous contrast. All CT scans at this [facility] [place] [facility] are performed using CT dose reduction for ALARA by means of automated exposure control CONTRAST: 100 mL Omnipaque 300 FINDINGS: Oropharynx: Left faucial tonsil is enlarged; lower attenuation in the contrast enhanced series: No en hancing ring surrounding the lower attenuation; tonsillitis has not yet matured into tonsillar/perito nsillar abscess on the left side; airway is narrowed Enlarged tonsil was seen in September 2019 Reactive lymph nodes at level 2 bilaterally Skull Base: No significant abnormality. Parotid, Carotid, Retropharyngeal, Prevertebral, Pharyngeal Mucosal, and Transition Social Worker Spaces: No abnorm al mass, enhancing lesion or other significant abnormality. Airway: Narrowed at oropharynx. Lymphatics: No lymphadenopathy. Vasculature: No significant abnormality. Osseous Structures: No significant abnormality Additional findings: None. IMPRESSION: Enlarged left faucial tonsil; lower attenuation area within the colon no enhancing rim; findings con sistent with tonsillar inflammation but not matured into abscess Signer Name: Lenin Alejandro MD Signed: 01/27/2020 1:58 PM Workstation Name: [id number]
== END 2020-01-27 14:51 | disposition home or self-care (01) ==
LOC: ED 08:29
DX: J03.90 Acute tonsillitis, unspecified (principal); E11.9 Type 2 diabetes mellitus without complications; Z79.2 Long term (current) use of antibiotics; Z79.899 Other long term (current) drug therapy
CPT/HCPCS: 36415; 70491; 80048; 85027; 87116; 87430; 96361; 96374; 96375; 99284; J1100; J2270; J7030; Q9967